=== PATIENT | female | born 1985 | race American Indian/Alaskan Native ===

== ENCOUNTER 2018-04-21 09:36 | Outpatient (CLI) | payer OTHER | END 2018-04-21 10:45 | disposition home or self-care (01) | LOC: NST 09:36 | DX: O30.002 Twin pregnancy, unspecified number of placenta and unspecified number of amniotic sacs, second trimester (principal); Z34.82 Encounter for supervision of other normal pregnancy, second trimester ==

== ENCOUNTER 2018-05-05 11:59 | Outpatient (CLI) | payer OTHER | END 2018-05-05 12:53 | disposition home or self-care (01) | LOC: NST 11:59 | DX: O30.003 Twin pregnancy, unspecified number of placenta and unspecified number of amniotic sacs, third trimester (principal); Z34.83 Encounter for supervision of other normal pregnancy, third trimester ==

== ENCOUNTER 2018-05-20 11:24 | Outpatient (CLI) | payer OTHER | END 2018-05-20 12:23 | disposition home or self-care (01) | LOC: NST 11:24 | DX: O30.003 Twin pregnancy, unspecified number of placenta and unspecified number of amniotic sacs, third trimester (principal); Z34.83 Encounter for supervision of other normal pregnancy, third trimester ==

== ENCOUNTER 2018-06-02 10:27 | Outpatient (CLI) | payer OTHER | END 2018-06-02 11:40 | disposition home or self-care (01) | LOC: NST 10:27 | DX: O30.003 Twin pregnancy, unspecified number of placenta and unspecified number of amniotic sacs, third trimester (principal); Z34.83 Encounter for supervision of other normal pregnancy, third trimester ==

== ENCOUNTER 2018-06-08 10:16 | Outpatient (CLI) | payer OTHER | END 2018-06-08 11:09 | disposition home or self-care (01) | LOC: NST 10:16 | DX: Z34.83 Encounter for supervision of other normal pregnancy, third trimester (principal) ==

== ENCOUNTER 2018-06-11 11:25 | Outpatient (CLI) | payer OTHER | END 2018-06-11 12:11 | disposition home or self-care (01) | LOC: NST 11:25 | DX: Z34.83 Encounter for supervision of other normal pregnancy, third trimester (principal) ==

== ENCOUNTER 2018-06-16 12:46 | Outpatient (CLI) | payer OTHER | END 2018-06-16 13:11 | disposition home or self-care (01) | LOC: NST 12:46 | DX: O30.003 Twin pregnancy, unspecified number of placenta and unspecified number of amniotic sacs, third trimester (principal); Z34.83 Encounter for supervision of other normal pregnancy, third trimester ==

== ENCOUNTER 2018-06-16 14:53 | Inpatient (IN) | payer OTHER ==
[~2018-06-16] VITALS: Ht 162.6 cm; Wt 2.7 kg
[2018-06-22] MEDS ORDERED: PRENATAL TABLE1 EAC1 PO (12:39)
== END 2018-06-26 17:43 | DRG 765 ==
LOC: SURG-SUITE 06-22 11:53 → LDR 06-22 11:53 → O/R 06-23 11:38 → SURG-SUITE 06-23 12:38 → SURG 07-23 14:52
PROVIDERS: Obstetrics & Gynecology
PROC: 4A1HXCZ Monitoring of Products of Conception, Cardiac Rate, External Approach (ICD-10-PCS; 2018-06-23)
PROC: 10D00Z1 Extraction of Products of Conception, Low, Open Approach (ICD-10-PCS; principal; 2018-06-23 10:45)
DX: O60.14X2 Preterm labor third trimester with preterm delivery third trimester, fetus 2 (principal); O98.82 Other maternal infectious and parasitic diseases complicating childbirth; O30.043 Twin pregnancy, dichorionic/diamniotic, third trimester; O32.1XX2 Maternal care for breech presentation, fetus 2; O14.14 Severe pre-eclampsia complicating childbirth; Z3A.35 35 weeks gestation of pregnancy; Z37.2 Twins, both liveborn

== ENCOUNTER 2018-06-22 08:15 | Outpatient (CLI) | payer OTHER ==
[2018-06-22] MEDS ORDERED: PRENATAL TABLE1 EAC1 PO (12:39)
== END 2018-06-22 09:17 | disposition home or self-care (01) ==
LOC: NST 08:15
DX: O30.003 Twin pregnancy, unspecified number of placenta and unspecified number of amniotic sacs, third trimester (principal); Z34.83 Encounter for supervision of other normal pregnancy, third trimester